=== PATIENT | female | born 1955 | race Caucasian/White ===

== ENCOUNTER 2018-11-19 16:03 | Emergency (ER) | payer BC, OTHER ==
[2018-11-19] MEDS ORDERED: Diphtheria,Pertussis(Acell),Tetanus Vaccine 0.5 ML Syringe IM ONE (16:13)
[2018-11-19] MEDS ORDERED: Bupivacaine 0.5% 10 ML SDV ONE (16:25)
[2018-11-19] MEDS: Bupivacaine 0.5% 10 ML SDV INJECT ONE ×2 (16:32→16:35)
--- NOTE | 2018-11-19 16:34 | EDM.PDOC ---
ED HPI GENERAL MEDICAL PROBLEM - General Chief Complaint: Laceration Stated Complaint: FINGER INJURY Time Seen by Provider: 11/19/18 16:11 Source of Information: Reports: Patient History Limitations: Reports: No Limitations - History of Present Illness INITIAL COMMENTS - FREE TEXT/NARRATIVE: History of present illness: []Patient was cooking and cutting salad and cut her left middle finger knife. She is up-to-date with tetanus has no other complaints. Review of systems: As per history of present illness and below otherwise all systems reviewed and negative. Past medical history: As per history of present illness and as reviewed below otherwise noncontributory. Surgical history: As per history of present illness and as reviewed below otherwise noncontributory. Social history: No reported history of drug or alcohol abuse. Family history: As per history of present illness and as reviewed below otherwise noncontributory. Physical exam: General: Well developed, well nourished in NAD HEENT: Atraumatic, normocephalic, pupils reactive, negative for conjunctival pallor or scleral icterus, mucous membranes moist, throat clear, neck supple, nontender, trachea midline. Lungs: Clear to auscultation, breath sounds equal bilaterally, chest nontender. Heart: S1S2, regular, negative for clicks, rubs, or JVD. Abdomen: NABS, Soft, nondistended, nontender. Negative for masses or hepatosplenomegaly. Negative for costovertebral tenderness. Pelvis: Stable nontender. Genitourinary: Deferred. Rectal: Deferred. Extremities: 2 cm laceration to dorsal middle finger is to distal to PIP, negative for cords or calf pain. Neurovascular unremarkable. Neuro: Awake, alert, oriented. Cranial nerves II through XII unremarkable. Cerebellum unremarkable. Motor and sensory unremarkable throughout. Exam nonfocal. Skin:warm and dry Diagnostics: none Therapeutics: sutured ED Course: stable Impression: Left middle finger laceration Prescriptions: None Plan: Take meds as directed, follow up with your primary care physician, return to ER if symptoms worsen or change. Definitive disposition and diagnosis as appropriate pending reevaluation and review of above. - Related Data Allergies Allergy/AdvReac Type Severity Reaction Status Date / Time No Known Allergies Allergy Verified 11/19/18 16:17 Home Meds: Home Meds Levothyroxine 125 mcg PO DAILY 11/19/18 [History] Multivit with Calcium,Iron,Min [One Daily with Calcium-Iron] 1 tab PO DAILY [History] ED ROS GENERAL - Review of Systems Review Of Systems: See Below ED EXAM, SKIN/RASH Exam: See Below ED SKIN PROCEDURES - Laceration/Wound Repair Middle finger Appearance: Superficial, Subcutaneous, Muscle, Linear, Stellate, Irregular, Clean, Mildly Contaminated, Moderately Contaminated, Heavily Contaminated, Other Distal NVT: Neuro & Vascular Intact Anesthetic Type: Digital Local Anesthesia - Lidocaine (Xylocaine): 1% Plain Local Anesthesia - Bupivicaine (Marcaine): 0.5% Plain Local Anesthetic Volume: 2cc Skin Prep: Chlorhexidine (Hibiciens) Exploration/Debridement/Repair: Wound Explored Closed with: Sutures Lac/Wound length In cm: 2 Suture Size: 5-0 Repaired with: Vicryl Drain Placement: No Sterile Dressing Applied: Nurse Tetanus Status Addressed: No Complications: No Course - Vital Signs Last Recorded V/S: Last Vital Signs Temp 98.3 F 11/19/18 16:18 Pulse 75 11/19/18 16:18 Resp 16 11/19/18 16:18 BP 124/68 11/19/18 16:18 Pulse Ox 98 11/19/18 16:18 - Orders/Labs/Meds Orders: Active Orders 24 hr Category Date Time Status Vaccines to be Administered [RC] PER UNIT ROUTINE Care 11/19/18 16:13 Inactive Meds: Medications Discontinued Medications Generic Name Dose Route Start Last Admin Trade Name Justyna PRN Reason Stop Dose Admin Bupivacaine HCl 10 ml 11/19/18 16:25 11/19/18 16:35 Sensorcaine-Mpf 0.5% INJECT 11/19/18 16:26 10 ml ONETIME ONE Administration Bupivacaine HCl Confirm 11/19/18 16:25 11/19/18 16:32 Sensorcaine-Mpf 0.5% Administered 11/19/18 16:26 Not Given Dose 10 ml .ROUTE .STK-MED ONE Lidocaine HCl 5 ml 11/19/18 16:25 11/19/18 16:35 Xylocaine-Mpf 1% INJECT 11/19/18 16:26 5 ml ONETIME ONE Administration Lidocaine HCl Confirm 11/19/18 16:25 11/19/18 16:35 Xylocaine-Mpf 1% Administered 11/19/18 16:26 Not Given Dose 5 ml .ROUTE .STK-MED ONE Departure - Departure Time of Disposition: 16:50 Disposition: Home, Self-Care 01 Condition: Good Clinical Impression: Laceration of left middle finger Qualifiers: Encounter type: initial encounter Damage to nail status: without damage Foreign body presence: without foreign body Qualified Code(s): S61.213A - Laceration without foreign body of left middle finger without damage to nail, initial encounter - Discharge Information *PRESCRIPTION DRUG MONITORING PROGRAM REVIEWED*: Not Applicable *COPY OF PRESCRIPTION DRUG MONITORING REPORT IN PATIENT KHANH: Not Applicable Referrals: PCP,Unknown [Primary Care Provider] - Forms: ED Department Discharge Additional Instructions: The following information is given to patients seen in the emergency department who are being discharged to home. This information is to outline your options for follow-up care. We provide all patients seen in our emergency department with a follow-up referral. The need for follow-up, as well as the timing and circumstances, are variable depending upon the specifics of your emergency department visit. If you don't have a primary care physician on staff, we will provide you with a referral. We always advise you to contact your personal physician following an emergency department visit to inform them of the circumstance of the visit and for follow-up with them and/or the need for any referrals to a consulting specialist. The emergency department will also refer you to a specialist when appropriate. This referral assures that you have the opportunity for follow-up care with a specialist. All of these measure are taken in an effort to provide you with optimal care, which includes your follow-up. Under all circumstances we always encourage you to contact your private physician who remains a resource for coordinating your care. When calling for follow-up care, please make the office aware that this follow-up is from your recent emergency room visit. If for any reason you are refused follow-up, please contact the [facility] Emergency Department at and asked to speak to the emergency department charge nurse. Take meds as directed, follow up with your primary care physician, return to ER if symptoms worsen or change. [facility] [address] [place] [id number] - My Orders Last 24 Hours: My Active Orders 11/19/18 16:13 Vaccines to be Administered [RC] PER UNIT ROUTINE - Assessment/Plan Last 24 Hours: My Active Orders 11/19/18 16:13 Vaccines to be Administered [RC] PER UNIT ROUTINE
[2018-11-19] MEDS ORDERED: Bacitracin Oint 1 GM U/D Packet ONE (16:57)
[2018-11-19] MEDS ORDERED: Bacitracin Oint 1 GM U/D Packet TOP ONE (16:57)
== END 2018-11-19 17:03 | disposition home or self-care (01) ==
LOC: MW.ED 16:03
DX: S61.213A Laceration without foreign body of left middle finger without damage to nail, initial encounter (principal); Z79.899 Other long term (current) drug therapy; W26.0XXA Contact with knife, initial encounter
CPT/HCPCS: 99282; J2001; J3490